=== PATIENT | male | born 1990 | race Caucasian/White ===

== ENCOUNTER 2021-01-15 20:13 | Emergency (ER) | payer OTHER ==
[2021-01-15 21:47] LABS: RED BLOOD COUNT 5.09 M/UL (4.20-5.50); WHITE BLOOD COUNT 11.3 K/UL (4.5-11.0)
[2021-01-15 22:11] LABS: BUN/CREATININE RATIO 19 (0-10)
== END 2021-01-15 22:55 | disposition left against medical advice (07) ==
LOC: ER1 20:13
PROVIDERS: Physician Assistant
DX: R07.9 Chest pain, unspecified (principal); R06.00 Dyspnea, unspecified; M54.9 Dorsalgia, unspecified; E87.6 Hypokalemia; F17.210 Nicotine dependence, cigarettes, uncomplicated
CPT/HCPCS: 72129; 72132; 80053; 82550; 82553; 83605; 83735; 83880; 84100; 84484; 85025; 85610; 85652; 85730; 86140; 87040; 99285; Q9967

== ENCOUNTER 2021-07-16 12:24 | Emergency (ER) | payer OTHER ==
[2021-07-16 13:57] LABS: HEMOGLOBIN 17.3 gm/dl (14.0-17.5); RED BLOOD COUNT 5.2 M/UL (4.20-5.50); WHITE BLOOD COUNT 11.7 K/UL (4.5-11.0)
[2021-07-16 14:16] LABS: BUN/CREATININE RATIO 11 (0-10)
[2021-07-16] MEDS ORDERED: AUGMENTIN 875-1 EACH PO (19:50)
[2021-07-16] MEDS ORDERED: CIPRO500 MG PO (19:59)
[2021-07-16] MEDS ORDERED: FLAGYL 250 MG250 MG PO (19:59)
== END 2021-07-16 21:21 | disposition home or self-care (01) ==
LOC: ER1 12:24
PROVIDERS: Physician Assistant
DX: K80.20 Calculus of gallbladder without cholecystitis without obstruction (principal); Z20.822 Contact with and (suspected) exposure to COVID-19
CPT/HCPCS: 76705; 80053; 81001; 83605; 83690; 85025; 87040; 93005; 96374; 96375; 99284; J1335; J2270; J2405; Q9967; U0002